=== PATIENT | female | born 1990 | race Caucasian/White ===

== ENCOUNTER 2019-06-26 02:20 | Emergency (ER) | payer SELFPAY ==
[2019-06-26 02:28] VITALS: BP 131/89
[2019-06-26] MEDS ORDERED: Lidocaine 2% JELLY* 6 ML JELLY TOPICAL ONE (02:36)
[2019-06-26] MEDS ORDERED: Lidocaine 2% w/ EPI 1:200,000* 20 ML SDV VIAL ONE (02:38)
[2019-06-26] MEDS ORDERED: Cephalexin CAP* 500 MG PO ONE (02:46)
--- NOTE | 2019-06-26 02:46 | ED ---
Skin Complaint - HPI Summary HPI Summary: Pt is a 28 y/o F presenting to the ED with a chief skin complaint. She states shes had a pilonidal cyst in the past, and for the past week or so, and about 2 days ago it began to abscess. It started to drain a bit over the past day. She reports extreme pain and inability to walk or move. - History of Current Complaint Chief Complaint: EDRashSkinAbscess Stated Complaint: ABSCESS PER PT Hx Obtained From: Patient Onset/Duration: Started Days Ago, Still Present Skin Exposure Onset/Duration: Days Ago Timing: Constant, Lasting Days Onset Severity: Moderate Current Severity: Severe Pain Intensity: 7 Pain Scale Used: 0-10 Numeric Skin Location: Other: - pilonidal Character: Pain, Redness, Raised Aggravating Symptom(s): Nothing Alleviating Symptom(s): Nothing Associated Signs & Symptoms: Drainage - Allergy/Home Medications Allergies/Adverse Reactions: Allergies Allergy/AdvReac Type Severity Reaction Status Date / Time No Known Allergies Allergy Verified 06/26/19 02:25 PMH/Surg Hx/FS Hx/Imm Hx Previously Healthy: Yes Endocrine/Hematology History: Denies: Hx Diabetes Cardiovascular History: Denies: Hx Hypertension Infectious Disease History: No Infectious Disease History: Denies: Traveled Outside the [place] in Last 30 Days - Family History Known Family History: Negative: Diabetes - Social History Alcohol Use: None Hx Substance Use: No Substance Use Type: Reports: None Hx Tobacco Use: No Smoking Status (MU): Never Smoked Tobacco Review of Systems Positive: Myalgia Positive: Other - abscess on buttocks - pilonidal All Other Systems Reviewed And Are Negative: Yes Physical Exam - Summary Physical Exam Summary: Appearance: Well-appearing, Well-nourished, lying in bed comfortable Skin: Warm, dry, no obvious rash Eyes: sclera anicteric, no conjunctival pallor ENT: mucous membranes moist Neck: deferred Respiratory: No signs of respiratory distress Cardiovascular: Appears well perfused, pulses are nml Abdomen: deferred Musculoskeletal: Moving all 4 extremities without obvious discomfort Neurological: Awake and alert, mentation is normal, speech is fluent and appropriate Psychiatric: affect is normal, does not appear anxious or depressed Buttocks: Rather large 3-4cm pilonidal cyst abscess with no drainage. Small amount of surrounding cellulitis. Triage Information Reviewed: Yes Vital Signs On Initial Exam: Initial Vitals Temp Pulse Resp BP Pulse Ox 99.3 F 120 16 131/89 97 06/26/19 02:21 06/26/19 02:21 06/26/19 02:21 06/26/19 02:21 06/26/19 02:21 Vital Signs Reviewed: Yes Procedures - Sedation Patient Received Moderate/Deep Sedation with Procedure: No - Incision and Drainage Sacrum Site: 3-4cm pilonidal cyst abscess Anesthesia: Local, Lidocaine - 1% Instrument(s): Other - #11 blade Packing: Drain Diagnostics - Vital Signs Vital Signs Temp Pulse Resp BP Pulse Ox 06/26/19 02:21 99.3 F 120 16 131/89 97 - Laboratory Lab Statement: Any lab studies that have been ordered have been reviewed, and results considered in the medical decision making process. Course/Dx - Course Course Of Treatment: Pt is a 28 y/o F presenting to the ED with a chief skin complaint. She states shes had a pilonidal cyst in the past, and for the past week or so, and about 2 days ago it began to abscess. It started to drain a bit over the past day. She reports extreme pain and inability to walk or move. On exam, pt has a rather large 3-4cm pilonidal cyst abscess with no drainage. Small amount of surrounding cellulitis. I drained the abscess using a #11 blade after numbing with 1% lidocaine. Pt will be sent home with abx prescription as well as some medication for pain management. Dx is pilonidal abscess. - Diagnoses Provider Diagnoses: Pilonidal abscess Discharge ED - Sign-Out/Discharge Documenting (check all that apply): Patient Departure - Discharge Plan Condition: Stable Disposition: HOME Prescriptions: Cephalexin CAP* [Keflex CAP*] 500 mg PO QID 5 Days #20 cap Patient Education Materials: Pilonidal Cyst (ED), Abscess (ED) Referrals: [facility] [Outside] Farhan Alvares MD [Medical Doctor] - If Needed - Billing Disposition and Condition Condition: STABLE Disposition: Home - Attestation Statements Document Initiated by Scribe: Yes Documenting Scribe: Ame Cruz Provider For Whom Scribe is Documenting (Include Credential): Hector Harrison MD. Scribe Attestation: Ame Moran scribed for Hector Harrison MD. on 06/26/19 at 0532. Scribe Documentation Reviewed: Yes Provider Attestation: The documentation as recorded by the scribe, Ame Cruz accurately reflects the service I personally performed and the decisions made by me, Hector Harrison MD. Status of Scribe Document: Viewed
== END 2019-06-26 02:55 | disposition home or self-care (01) ==
LOC: ED 02:20
DX: L05.01 Pilonidal cyst with abscess (principal)
CPT/HCPCS: 10080; 99282; A9270-GY